=== PATIENT | female | born 1935 | race Caucasian/White ===

== ENCOUNTER 2017-01-09 08:58 | Observation (INO) | payer MEDICARE, OTHER ==
[~2017-01-09] VITALS: Ht 160 cm; Wt 61.8 kg
[~2017-01-09 08:58] MED LIST: CARAFATE1 G PO; CARDIZEM CD300 MG PO; CO Q-10100 MG PO; COUMADIN4 MG PO; COUMADIN5 MG PO; DULCOLAX STOOL100 MG PO; HYDROCHLOROTH12.5 M1 PO; LIORESAL 10 MG10 MG PO; LUMIGAN 0.01%2.5 ML EACH EYE; NIACIN250 M1 PO; NORCO 10/325 TA1 TA1 PO; PLAVIX75 MG PO; PRILOSEC20 MG PO; PRINZIDE 20/12.1 TAB PO; PROTONIX40 MG PO; REMERON15 MG PO; VALIUM10 MG PO; ZOCOR20 MG PO
[2017-01-09 09:52] LABS: BASOPHILS 0.2 % (0-2); EOSINOPHILS 3.2 % (0-7); HEMATOCRIT 37.3 % (36.0-48.0); HEMOGLOBIN 11.3 g/dL (12-16); IMMATURE GRANULOCYTES 0.2 % (0-5); LYMPHOCYTES 21.8 % (15-50); MCH 24.5 pg (26.0-34.0); MCHC 30.3 g/dL (31.0-37.0); MCV 80.9 fL (80.0-100.0); MEAN PLATELET VOLUME 8.7 fL (7.4-10.4); MONOCYTES 8.6 % (2-11); PLATELET COUNT 232 10x3/uL (130-400); RBC 4.61 10x6/uL (4.00-5.40); WBC 4.6 10x3/uL (4.8-10.8)
[2017-01-09 10:03] LABS: ALBUMIN 3.7 g/dL (3.4-5.0); ANION GAP 11.3 mmol/L (8-16); BILIRUBIN - TOTAL 0.3 mg/dL (0.2-1.3); CALCIUM 9.6 mg/dL (8.5-10.1); CARBON DIOXIDE 27.5 mmol/L (21.0-32.0); CREATININE - SERUM 0.8 mg/dL (0.6-1.3); MAGNESIUM - SERUM 1.9 mg/dL (1.8-2.4); POTASSIUM - SERUM 3.8 mmol/L (3.5-5.1); PROTEIN - SERUM 6.8 g/dL (6.4-8.2)
[2017-01-09 10:04] LABS: APPEARANCE CLEAR (CLEAR); BILIRUBIN NEGATIVE (NEGATIVE); COLOR YELLOW (YELLOW); GLUCOSE NEGATIVE (NEGATIVE); KETONE NEGATIVE (NEGATIVE); LEUKOCYTE ESTERASE NEGATIVE (NEGATIVE); NITRITE NEGATIVE (NEGATIVE); PROTEIN NEGATIVE (NEGATIVE); SPECIFIC GRAVITY 1.015 (1.005-1.020); UROBILINOGEN NORMAL (NORMAL)
[2017-01-09 10:08] LABS: UDS - AMPHET NEGATIVE QUAL (NEGATIVE); UDS - BARB NEGATIVE QUAL (NEGATIVE); UDS - BENZO POSITIVE QUAL (NEGATIVE); UDS - COCAINE NEGATIVE QUAL (NEGATIVE); UDS - METH NEGATIVE QUAL (NEGATIVE); UDS - OPIATE POSITIVE QUAL (NEGATIVE); UDS - PCP NEGATIVE QUAL (NEGATIVE); UDS - THC NEGATIVE QUAL (NEGATIVE)
--- NOTE | 2017-01-09 14:19 | NUR ---
TRANSFER FROM ER BY STRETCHER. OREINTED TO ROOM. CALL LIGHT IN REACH. WILL CONT. PLAN OF CARE.
--- NOTE | 2017-01-09 14:54 | NUR ---
CONFUSED, AND SCARED. FAMILY AT BEDSIDE. SR UP WITH CALL LIGHT IN REACH. O2 AT 2 LM PER NC.
[2017-01-09 14:58] VITALS: BP 115/80; BMI 24.1
[2017-01-09 16:00] VITALS: BP 165/80
[2017-01-09] MEDS ORDERED: ZOCOR40 MG PO (16:07)
[2017-01-09] MEDS ORDERED: NITRO-DUR0.4 MG (16:14)
[2017-01-09] MEDS ORDERED: CATAPRES0.1 MG PO (16:19)
[2017-01-09] MEDS ORDERED: PRINZIDE 20/12.1 TA1 PO (16:20)
[2017-01-09] MEDS ORDERED: PROTONIX40 MG PO (16:22)
[2017-01-09] MEDS ORDERED: REMERON15 MG/UDTA PO (16:22)
[2017-01-09] MEDS ORDERED: BIMATOPROST2.5 ML EACH EYE (16:23)
[2017-01-09] MEDS ORDERED: BACLOFEN10 MG PO (16:28)
[2017-01-09 17:41] LABS: % SATURATION 9 % (15-55); IRON 34 ug/dl (35-150); TOTAL IRON BIND CAPACITY 371 ug/dl (260-445); UNSAT IRON BIND CAPACITY 337 ug/dl (150-375)
--- NOTE | 2017-01-09 18:30 | NUR ---
NORE ALERT. FAMILY AT BEDSIDE.IV TO WRIST. TELEMERTY SHOWS SR.SR UP TIMES 2 WITH CALL LIGHT IN REACH. WILL MONITOR
[2017-01-09 19:00] VITALS: BP 141/82
[2017-01-10] VITALS: BP 146/80
--- NOTE | 2017-01-10 01:58 | NUR ---
RESTING WITH EYES CLOSED. RESPERATIONS EVEN, NO S/S DISTRESS NOTED.
[2017-01-10 04:32] VITALS: BP 135/84
[2017-01-10 05:35] LABS: BASOPHILS 0.2 % (0-2); HEMATOCRIT 35.8 % (36.0-48.0); IMMATURE GRANULOCYTES 0.2 % (0-5); LYMPHOCYTES 19.3 % (15-50); MCH 24.1 pg (26.0-34.0); MCHC 30.7 g/dL (31.0-37.0); MONOCYTES 10.7 % (2-11); NEUTROPHILS 67.6 % (40-80); PLATELET COUNT 263 10x3/uL (130-400); RBC 4.56 10x6/uL (4.00-5.40); RDW 14.1 % (11.5-14.5); WBC 4.6 10x3/uL (4.8-10.8)
[2017-01-10 05:41] LABS: MCV 78.5 fL (80.0-100.0)
[2017-01-10 06:10] LABS: ALBUMIN 3.2 g/dL (3.4-5.0); ALKALINE PHOSPHATASE 85 U/L (46-116); ALT (SGPT) 23 U/L (10-68); BILIRUBIN - TOTAL 0.41 mg/dL (0.2-1.3); CALC OSMOLALITY 274 mosm/kg (275-300); CARBON DIOXIDE 24.8 mmol/L (21.0-32.0); CHLORIDE - SERUM 104 mmol/L (98-107); CREATININE - SERUM 0.7 mg/dL (0.6-1.3); GLUCOSE 118 mg/dL (74-106); POTASSIUM - SERUM 3.4 mmol/L (3.5-5.1); PROTEIN - SERUM 6.8 g/dL (6.4-8.2); SODIUM 137 mmol/L (136-145); eGFR NON AFRICAN AMERICAN 85 mL/min (90-120)
[2017-01-10 06:13] LABS: UREA NITROGEN 12 mg/dL (7-18)
--- NOTE | 2017-01-10 06:49 | NUR ---
NOTIFIED BY PTS SON THAT PTS RESPERATIONS HAS DECREASED MORE AND THAT PT IS HARDER TO AWAKEN. ENTERED ROOM, PTS RESPERATIONS SHALLOW, PT NOT RESPONDING TO STERNAL RUB. RAPID RESPOSE CALLED. PT 65 SR ON TELEMETRY, BP 151/72, SPO2 92% ON 2 LITER VIA NC. KELSI RN FROM ICU AT BED SIDE, RAMAZACON 0.5 MG GIVEN IV. IMMEDIATE RESPONSE NOTED, PT ALERT AND TALKING, ASKING FOR HER SON, WILL CONT TO MONITOR.
[2017-01-10 08:00] VITALS: BP 171/74
--- NOTE | 2017-01-10 08:13 | NUR ---
ASSESSMENT DONE. FAMILY AT SIDE.
--- NOTE | 2017-01-10 10:02 | NUR ---
RESTS IN BED WITHOUT NEEDS VOICED. RESP UL ON . AT BS. WILL CONT. PLAN OF CARE.
[2017-01-10 10:54] VITALS: Ht 160 cm; Wt 61.8 kg
[2017-01-10 16:00] VITALS: BP 144/89
--- NOTE | 2017-01-10 18:09 | NUR ---
WITHOUT CHANGES OR DISTRESS NOTED AT THIS TIME. DENIES NEEDS.
--- NOTE | 2017-01-10 19:38 | NUR ---
PT RESTING IN BED. FAMILY AT BEDSIDE. PT DENIES ANY NEEDS. BEDLOW AND CALL LIGHT IN REACH. NO S/S OF DISTRESS. WILL CPOC
--- NOTE | 2017-01-10 21:17 | NUR ---
PT IS AAO X4. STATES SHE IS WORRIED ABOUT HER EYE DROPS. TOLD HER I HAVE THEM WITH ME TO GIVE. PT HAS FAMILY AT BED SIDE. PT DENIES ANY OTHER NEEDS. NO S/S OF DISTRESS. WILL CPOC
[2017-01-10 21:18] VITALS: BP 155/87
[2017-01-11 06:49] LABS: BASOPHILS 0.5 % (0-2); EOSINOPHILS 1.9 % (0-7); HEMOGLOBIN 12.7 g/dL (12-16); IMMATURE GRANULOCYTES 0.3 % (0-5); LYMPHOCYTES 17.3 % (15-50); MCH 25.8 pg (26.0-34.0); MCHC 32.6 g/dL (31.0-37.0); MCV 79.3 fL (80.0-100.0); MEAN PLATELET VOLUME 9.8 fL (7.4-10.4); MONOCYTES 10.3 % (2-11); NEUTROPHILS 69.7 % (40-80); PLATELET COUNT 250 10x3/uL (130-400); RBC 4.92 10x6/uL (4.00-5.40); RDW 14.5 % (11.5-14.5)
[2017-01-11 06:54] LABS: WBC 6.4 10x3/uL (4.8-10.8)
[2017-01-11 07:03] LABS: ALBUMIN 3.6 g/dL (3.4-5.0); ALKALINE PHOSPHATASE 91 U/L (46-116); ALT (SGPT) 24 U/L (10-68); CALCIUM 9.7 mg/dL (8.5-10.1); CARBON DIOXIDE 23.1 mmol/L (21.0-32.0); CHLORIDE - SERUM 104 mmol/L (98-107); CREATININE - SERUM 0.7 mg/dL (0.6-1.3); GLUCOSE 132 mg/dL (74-106); POTASSIUM - SERUM 3.8 mmol/L (3.5-5.1); PROTEIN - SERUM 7.3 g/dL (6.4-8.2); SODIUM 137 mmol/L (136-145); eGFR NON AFRICAN AMERICAN 85 mL/min (90-120)
[2017-01-11 07:05] LABS: CALC OSMOLALITY 277 mosm/kg (275-300); UREA NITROGEN 18 mg/dL (7-18)
[2017-01-11] MEDS ORDERED: PEPCID40 MG PO (07:08)
[2017-01-11] MEDS ORDERED: NIACIN250 M1 PO (07:12)
[2017-01-11] MEDS ORDERED: CO Q-10100 MG PO (07:12)
[2017-01-11] MEDS ORDERED: COLACE100 MG PO (07:14)
--- NOTE | 2017-01-11 08:11 | NUR ---
ASSESSMENT DONE. DENIES NEEDS.
[2017-01-11 08:16] VITALS: BP 156/84
[2017-01-11 09:16] LABS: FOLATE (FOLIC ACID) - SERUM 14.5 ng/mL (>3.0)
--- NOTE | 2017-01-11 09:32 | NUR ---
UP WITH PT ASSIST. AT BS. WILL CONT. PLAN OF CARE.
[2017-01-11] MEDS ORDERED: BACLOFEN10 MG PO ×2 (10:28→14:45)
[2017-01-11] MEDS ORDERED: VALIUM10 MG PO (10:29)
[2017-01-11] MEDS ORDERED: HYDROCODON-ACE1 EAC7 PO (10:34)
[2017-01-11 11:58] VITALS: BP 130/79
[2017-01-11] MEDS ORDERED: VALIUM 2 MG TAB2 MG PO (14:42)
--- NOTE | 2017-01-11 14:57 | NUR ---
IV AND LANG CATH DCD.
--- NOTE | 2017-01-11 14:59 | NUR ---
DC AND RX GIVEN TO PT AND
--- NOTE | 2017-01-11 15:44 | NUR ---
DC HOME PER PERSONAL CAR
== END 2017-01-11 15:45 | disposition home or self-care (01) ==
LOC: D.ER 08:58 → OBSVTIME 12:33 → D.M2 12:33
PROVIDERS: Emergency Medicine; ADMIT Family Medicine
DX: T42.4X1A Poisoning by benzodiazepines, accidental (unintentional), initial encounter (principal); T40.601A Poisoning by unspecified narcotics, accidental (unintentional), initial encounter; R41.82 Altered mental status, unspecified; R41.0 Disorientation, unspecified; R47.81 Slurred speech; R26.89 Other abnormalities of gait and mobility; Z86.73 Personal history of transient ischemic attack (TIA), and cerebral infarction without residual deficits; I10 Essential (primary) hypertension; E11.9 Type 2 diabetes mellitus without complications; G89.29 Other chronic pain; E78.5 Hyperlipidemia, unspecified; H40.9 Unspecified glaucoma; Z86.010 Personal history of colon polyps

== ENCOUNTER → 2017-09-12 14:03 | Outpatient (CLI) | payer MEDICARE, OTHER ==
[2017-01-10 10:54] VITALS: BMI 24.1
[~2017-09-12 14:03] MED LIST changes: +BACLOFEN10 MG PO; +BIMATOPROST2.5 ML EACH EYE; +CATAPRES0.1 MG PO; +CITRACAL + D E1 EACH PO; +COLACE100 MG PO; +HYDROCODON-ACE1 EAC7 PO; +HYDROCODONE-APA1 TAB PO; +NITRO-DUR0.4 MG; +PEPCID40 MG PO; +PRINZIDE 20/12.1 TA1 PO; +REMERON15 MG/UDTA PO; +VALIUM 2 MG TAB2 MG PO; +ZOCOR40 MG PO
== END | disposition home or self-care (01) ==
LOC: D.US 14:00
DX: R60.0 Localized edema (principal)

== ENCOUNTER 2017-10-16 20:20 | Observation (INO) | payer MEDICARE, OTHER ==
[~2017-10-16] VITALS: Ht 167.6 cm; Wt 79.5 kg
[~2017-10-16 20:20] MED LIST changes: -CITRACAL + D E1 EACH PO; -HYDROCODONE-APA1 TAB PO
[2017-10-16 21:44] LABS: BASOPHILS 0.3 % (0-2); HEMATOCRIT 30.4 % (36.0-48.0); HEMOGLOBIN 8.9 g/dL (12-16); IMMATURE GRANULOCYTES 0.4 % (0-5); LYMPHOCYTES 8.8 % (15-50); MCHC 29.3 g/dL (31.0-37.0); MCV 68.3 fL (80.0-100.0); MONOCYTES 10.5 % (2-11); PLATELET COUNT 269 10x3/uL (130-400); RBC 4.45 10x6/uL (4.00-5.40); WBC 7.3 10x3/uL (4.8-10.8)
[2017-10-16 21:51] LABS: ALBUMIN 3.7 g/dL (3.4-5.0); ALKALINE PHOSPHATASE 78 U/L (46-116); ALT (SGPT) 21 U/L (10-68); BILIRUBIN - TOTAL 0.26 mg/dL (0.2-1.3); CALC OSMOLALITY 264 mosm/kg (275-300); CALCIUM 9.6 mg/dL (8.5-10.1); CARBON DIOXIDE 28.8 mmol/L (21.0-32.0); CHLORIDE - SERUM 93 mmol/L (98-107); CREATININE - SERUM 1.3 mg/dL (0.6-1.3); GLUCOSE 110 mg/dL (74-106); POTASSIUM - SERUM 3.7 mmol/L (3.5-5.1); PROTEIN - SERUM 7.2 g/dL (6.4-8.2); SODIUM 130 mmol/L (136-145); UREA NITROGEN 21 mg/dL (7-18); eGFR NON AFRICAN AMERICAN 41 mL/min (90-120)
[2017-10-16 22:03] LABS: CKMB 2.3 U/L (0.0-3.6); CREATINE KINASE 74 UL (21-215); TROPONIN-I < 0.017 ng/mL (0.000-0.060)
[2017-10-16 22:08] VITALS: BP 129/60
[2017-10-16 22:16] LABS: APPEARANCE CLEAR (CLEAR); BILIRUBIN NEGATIVE (NEGATIVE); COLOR YELLOW (YELLOW); GLUCOSE NEGATIVE (NEGATIVE); KETONE NEGATIVE (NEGATIVE); NITRITE NEGATIVE (NEGATIVE); PROTEIN NEGATIVE (NEGATIVE); SPECIFIC GRAVITY 1.005 (1.005-1.020); UROBILINOGEN NORMAL (NORMAL)
[2017-10-16 23:01] VITALS: BP 133/63
[2017-10-17] VITALS (13 sets, daily range): BP systolic 102–199; BP diastolic 54–91; BMI 22.3
[2017-10-17 13:21] LABS: % SATURATION 3 % (15-55); IRON 14 ug/dl (35-150); TOTAL IRON BIND CAPACITY 427 ug/dl (260-445); UNSAT IRON BIND CAPACITY 413 ug/dl (150-375)
[2017-10-17 14:42] LABS: FERRITIN 14 ng/mL (3-244); LDH 241 U/L (81-234)
[2017-10-18 00:10] VITALS: BP 194/103
[2017-10-18 04:11] VITALS: BP 198/91; BMI 28.3
[2017-10-18 04:41] LABS: BASOPHILS 0.2 % (0-2); EOSINOPHILS 1.1 % (0-7); HEMATOCRIT 30.4 % (36.0-48.0); HEMOGLOBIN 8.9 g/dL (12-16); LYMPHOCYTES 14.4 % (15-50); MCH 20.1 pg (26.0-34.0); MCHC 29.3 g/dL (31.0-37.0); MCV 68.8 fL (80.0-100.0); MEAN PLATELET VOLUME 8.1 fL (7.4-10.4); MONOCYTES 10.8 % (2-11); NEUTROPHILS 73.5 % (40-80); PLATELET COUNT 267 10x3/uL (130-400); RBC 4.42 10x6/uL (4.00-5.40); RDW 18.3 % (11.5-14.5); WBC 4.5 10x3/uL (4.8-10.8)
[2017-10-18 04:53] LABS: CALC OSMOLALITY 272 mosm/kg (275-300); CALCIUM 9.6 mg/dL (8.5-10.1); CARBON DIOXIDE 24.7 mmol/L (21.0-32.0); CHLORIDE - SERUM 101 mmol/L (98-107); CREATININE - SERUM 0.7 mg/dL (0.6-1.3); GLUCOSE 94 mg/dL (74-106); POTASSIUM - SERUM 3.5 mmol/L (3.5-5.1); SODIUM 136 mmol/L (136-145); UREA NITROGEN 16 mg/dL (7-18); eGFR NON AFRICAN AMERICAN 85 mL/min (90-120)
[2017-10-18 08:10] VITALS: BP 152/71
[2017-10-18] MEDS ORDERED: LUMIGAN 0.01%2.5 ML EACH EYE (10:07)
[2017-10-18] MEDS ORDERED: HYDROCODONE-APA1 TAB PO (10:12)
[2017-10-18] MEDS ORDERED: ZOCOR40 MG PO (11:15)
[2017-10-18] MEDS ORDERED: PEPCID40 MG PO (11:15)
[2017-10-18] MEDS ORDERED: CITRACAL + D E1 EACH PO (11:15)
[2017-10-18 12:47] VITALS: BP 152/89
[2017-10-18] MEDS ORDERED: HYDROCODON-ACE1 EAC7 PO (13:56)
[2017-10-18 14:33] VITALS: Ht 167.6 cm; Wt 79.5 kg
[2017-10-18 16:48] VITALS: BP 156/69
[2017-10-20 09:14] LABS: FOLATE (FOLIC ACID) - SERUM >20.0 ng/mL (>3.0)
== END 2017-10-18 18:53 | disposition home or self-care (01) ==
LOC: D.ER 20:20 → D.EDHOLD 10-17 00:12 → OBSVTIME 10-17 00:12 → D.EDHOLD 10-17 00:12 → D.M2 10-17 17:22 → D.MS 10-17 20:45
PROVIDERS: Family Medicine; Internal Medicine Nephrology
DX: G93.40 Encephalopathy, unspecified (principal); I65.22 Occlusion and stenosis of left carotid artery; D50.9 Iron deficiency anemia, unspecified; E78.5 Hyperlipidemia, unspecified; F10.10 Alcohol abuse, uncomplicated; I34.0 Nonrheumatic mitral (valve) insufficiency; E11.9 Type 2 diabetes mellitus without complications; N17.9 Acute kidney failure, unspecified

== ENCOUNTER → 2018-01-15 16:39 | Outpatient (CLI) | payer MEDICARE, OTHER ==
[2017-10-18 14:33] VITALS: BMI 28.3
[~2018-01-15 16:39] MED LIST changes: +CITRACAL + D E1 EACH PO; +HYDROCODONE-APA1 TAB PO
== END | disposition home or self-care (01) ==
LOC: D.MAMMO 16:00
DX: Z12.31 Encounter for screening mammogram for malignant neoplasm of breast (principal)

== ENCOUNTER → 2018-05-17 13:40 | Outpatient (CLI) | payer MEDICARE, OTHER ==
[2017-10-18 14:33] VITALS: BMI 28.3
[~2018-05-17 13:40] MED LIST changes: +GABAPENTIN100 MG PO
== END | disposition home or self-care (01) ==
LOC: D.CT 13:40
DX: Z86.711 Personal history of pulmonary embolism (principal)

== ENCOUNTER 2018-05-31 12:38 | Inpatient (IN) | payer MEDICARE, OTHER ==
[~2018-05-31] VITALS: Ht 167.6 cm; Wt 70.9 kg
--- NOTE | ~2018-05-31 | HEMODYNAMI ---
PATIENT:SUMI LACKEY MEDICAL RECORD: [id number] : 35 LOCATION:[facility] D.2306 ADMISSION DATE: 05/31/18 Generatedon:06/03/201822:43 Patient name: SUMI LACKEY Patient #: [id number] SSN: : 1935 Date of study: 06/03/2018 Page: Of Hemodynamic Procedure Report Patient Data Patient Demographics Procedure consent was obtained First Name: SUMI Gender: Female Last Name: ZIYAD : 1935 [facility] Initial: ALESSANDRO Age: 82 year(s) Patient #: [id number] Race: Unknown Additional ID: [id number] Contact details Address: [address] [address] State: [place] City: [place] Zip code: [address] Admission Admission Data Admission Date: 05/31/2018 Admission Time: 15:21 Room #: D.2306 Procedure Procedure Types Cath Procedure Peripheral Cath Diagnostic Procedure Thoracic/Pulmonary Pulmonary Arteriogram Unilat Procedure Description Procedure Date Procedure Date: 06/03/2018 Procedure Start Time: 20:35 Procedure Staff Name Function Luis Jaimes MD Performing Physician Luca Wynne RT Monitor Kira Guzman RN Nurse Procedure Data Cath Procedure Fluoroscopy Diagnostic fluoroscopy Total fluoroscopy Time: time: 33.4 min 33.4 min Diagnostic fluoroscopy Total fluoroscopy dose: 214 dose: 214 mGy mGy Contrast Material Contrast Material Type Amount (ml) Isovue 300 115 Entry Location Entry Primary Successful Side Size Upsize Upsize Entry Closure Succes sful Closure Location (Fr) 1 (Fr) 2 (Fr) Remarks Device Remarks Femoral Right 8 Fr vein Diagnostic catheters Device Type Used For End Catheter Placement Cook Grollman Pigtail 6.7Fr catheter ([id number]) Robin Mayorgastein 5Fr 125CM catheter ([id number]) Procedure Medications Medication Administration Route Dosage Heparin Flush Bag added to field 3 bags (1000units/500ml NS) Lidocaine 1% added to field 20 Hemodynamics Rest Heart Rate: 61 (bpm) Pressure Samples Time Site Value (mmHg) Purpose Heart Use Rate(bpm) 21:07 PA 45/23(29) Snapshot 66 21:48 PA 33/19(24) Snapshot 65 21:48 PA 32/18(24) Snapshot 64 21:49 PA 33/17(24) Snapshot 64 Snapshots Pre Cath Intra NCS Post Cath Vital Signs Time Heart Resp SPO2 etCO2 NIBP (mmHg) Rhythm Pain Sedation Rate (ipm) (%) (mmHg) Status Level (bpm) 20:25:03 62 10 97 0 114/56(97) NSR 0 (11) 6(A) , No pain 20:29:19 60 16 0 98/48(65) NSR 0 (11) 6(A) , No pain 20:34:18 62 16 0 Measuring NSR 0 (11) 6(A) , No pain 20:34:22 62 16 98 0 116/48(76) NSR 0 (11) 6(A) , No pain 20:38:36 65 16 99 0 116/57(82) NSR 0 (11) 6(A) , No pain 20:42:46 77 16 98 0 134/68(88) NSR 0 (11) 6(A) , No pain 20:47:45 67 17 98 0 Measuring NSR 0 (11) 6(A) , No pain 20:47:53 68 16 98 0 112/63(106) NSR 0 (11) 6(A) , No pain 20:52:05 66 23 99 0 120/56(88) NSR 0 (11) 6(A) , No pain 20:56:17 66 30 98 0 112/61(79) NSR 0 (11) 6(A) , No pain 21:01:16 65 25 97 0 Measuring NSR 0 (11) 6(A) , No pain 21:01:41 74 17 97 0 108/48(71) NSR 0 (11) 6(A) , No pain 21:04:18 67 24 98 0 123/63(91) NSR 0 (11) 6(A) , No pain 21:08:32 66 21 97 0 119/58(97) NSR 0 (11) 6(A) , No pain 21:12:46 66 17 98 0 110/55(80) NSR 0 (11) 6(A) , No pain 21:16:56 65 21 98 0 126/55(86) NSR 0 (11) 6(A) , No pain 21:21:10 65 17 99 0 122/59(74) NSR 0 (11) 6(A) , No pain 21:25:28 65 17 99 0 111/46(79) NSR 0 (11) 6(A) , No pain 21:29:38 65 21 100 0 125/54(79) NSR 0 (11) 6(A) , No pain 21:33:56 65 20 98 0 112/52(62) NSR 0 (11) 6(A) , No pain 21:38:08 64 22 99 0 115/50(79) NSR 0 (11) 6(A) , No pain 21:42:24 64 19 98 0 115/46(77) NSR 0 (11) 6(A) , No pain 21:46:40 64 16 99 0 119/43(72) NSR 0 (11) 6(A) , No pain 21:50:56 63 16 98 0 122/47(77) NSR 0 (11) 6(A) , No pain 21:54:35 63 18 100 0 108/52(84) NSR 0 (11) 6(A) , No pain 21:58:49 63 17 98 0 121/43(83) NSR 0 (11) 6(A) , No pain 22:03:04 61 17 99 0 109/55(80) NSR 0 (11) 6(A) , No pain 22:07:17 60 19 100 0 120/43(75) NSR 0 (11) 6(A) , No pain 22:11:33 60 17 100 0 119/47(72) NSR 0 (11) 6(A) , No pain 22:15:49 61 16 100 0 124/48(85) NSR 0 (11) 6(A) , No pain 22:19:18 59 18 100 0 117/47(75) NSR 0 (11) 6(A) , No pain 22:24:18 58 18 0 Measuring NSR 0 (11) 6(A) , No pain 22:24:50 57 16 0 92/39(66) NSR 0 (11) 6(A) , No pain 22:28:19 58 16 0 92/48(67) NSR 0 (11) 6(A) , No pain 22:31:15 59 16 100 0 107/55(82) NSR 0 (11) 6(A) , No pain 22:35:27 59 16 100 0 113/46(77) NSR 0 (11) 6(A) , No pain 22:40:26 59 25 100 0 Measuring NSR 0 (11) 6(A) , No pain 22:40:51 59 18 100 0 93/50(75) NSR 0 (11) 6(A) , No pain Medications Time Medication Route Dose Verified Delivered Reason Notes Effe ctiveness by by 20:28:20 Heparin Flush added 3 Luis Smith used for Bag to bags Theodore Jaimes procedure (1000units/500ml field MD LACEY NS) 20:28:31 Lidocaine 1% added 20ml Luis Smith for local to vial Theodore Jaimes anesthetic field MD LACEY Procedure Log Time Note 20:14:52 Luca Wynne RT (R) (CV) sent for patient. Start room use. 20:15:13 Time tracking: Call back (After hours or weekends) 20:15:17 Plan of Care:Hemodynamics will remain stable., Cardiac rhythm will remain stable., Comfort level will be maintained., Respiratory function will remain adequate., Patient/ family verbilizes understanding of procedure., Procedure tolerated without complication., Recovers from procedure without complications.. 20:15:19 Patient arrives emergently. 20:15:27 Patient received from ICU to IR Unconscious. Tansferred to table in Supine position. 20:15:30 Correct patient and procedure confirmed by team. 20:15:32 Signed procedure consent form obtained from spouse. 20:15:33 ECG and BP/O2 sat monitors applied to patient. 20:15:35 Full Disclosure recording started 20:15:35 - 20:15:41 H&P Date Dictated: 06/03/2018 Within 30 days and on chart.. 20:15:46 Family in waiting room. 20:15:51 Patient NPO since Lunch. 20:16:03 Unable to provide pre-op teaching due to educational barrier. pt on ventilator 20:16:12 Use device set IR Diagnostic 20:16:13 ACIST Syringe (95393) opened to sterile field. 20:16:13 ACIST Hand Control (36928) opened to sterile field. 20:16:13 ACIST Manifold (10845) opened to sterile field. 20:16:14 Bag Decanter (2002S) opened to sterile field. 20:16:14 Sterile Angiographic Pack opened to sterile field. 20:16:15 Tegaderm 4 x 4 (1626W) opened to sterile field. 20:16:28 IV patent on arrival in left forearm with 0.9% NaCl at [facility]. 20:16:34 Right groin area was prepped with chlora-prep and draped in sterile fashion 20:16:36 Alarms reviewed by R. N. 20:16:37 Sharps counted by scrub and verified by R.N. 20:23:37 Vital chart was started 20:28:20 Heparin Flush Bag (1000units/500ml NS) 3 bags added to field was administered by Luis Jaimes MD; used for procedure; 20:28:31 Lidocaine 1% 20ml vial added to field was administered by Luis macias MD; for local anesthetic; 20:29:53 Baseline sample Acquired. 20:34:11 Physician arrived 20:34:12 --------ALL STOP TIME OUT------ 20:34:12 Final Timeout: patient, procedure, and site verified with staff and physician. All members of the team are in agreement. 20:34:14 Right groin site verified by team. 20:34:20 Fire Safety Assessment: A--An alcohol-based skin anteseptic being used preoperatively., C--Open oxygen or nitrous oxide is being used. 20:34:31 Sedation plan: Local Anesthetic Medication:Lidocaine 20:35:08 Procedure started. 20:35:13 Local anesthetic to right femoral vein with Lidocaine 1% by Luis Jaimes MD.INITIAL ACCESS ONLY 20:37:44 Access obtained with 4Fr micropunture. 20:38:16 ALISTAIR 145cm wire (J61932) opened to sterile field. 20:38:17 Micropuncture VSI 4FR kit opened to sterile field. 20:38:18 TUBING Contrast Injection High Pressure (XUU586E) opened to sterile field. 20:38:21 A Tapiture Grollman Pigtail 6.7Fr catheter (Y36699) was advanced over the wire and used for . 20:38:22 Indigo System Aspiration Catheter 8 opened to sterile field. 20:38:23 Cook RAABE 7FR.90CM guide sheath opened to sterile field. 20:38:36 Indigo System Pump suction opened to sterile field. 20:48:42 Left groin area was prepped with chlora-prep and draped in sterile fashion 20:49:59 A 8 Fr sheath was inserted into the Right Femoral vein 20:57:52 GLIDE WIRE ANGLE 260cm (RI7075) opened to sterile field. 20:59:00 TORQUE DEVICE PLASTIC .038 ( TD01) opened to sterile field. 21:01:44 LOGAN 260 wire (K09167) opened to sterile field. 21:07:06 Zero performed for pressure channel P1 21:12:17 A Elevate Medical Meredith 5Fr 125CM catheter ([id number]) was advanced over the wire and used for . 21:16:34 Indigo System Separator 8 opened to sterile field. 21:21:18 STOPCOCK 3-Way Large Bore (W82786) opened to sterile field. 21:47:44 PT ON VENT, NO SEDATION USED 21:48:02 Zero performed for pressure channel P1 21:48:07 Zero performed for pressure channel P1 21:48:12 Zero performed for pressure channel P1 22:07:16 Zero performed for pressure channel P1 22:15:56 Procedure ended.(Physican Out) 22:16:25 Fluoroscopy time 33.40 minutes. 22:16:30 Fluoroscopy dose: 214 mGy 22:16:30 Flurop Dose total: 214 22:16:33 Sharps counted by scrub and verified by R.N. 22:16:34 Insertion/operative site no bleeding no hematoma. 22:16:43 Post right femoral vein:stable 22:17:02 triple lumen cath placed and sutured in to rt.groin 22:17:04 Post procedure instruction explained to patient.Patient verbalizes understanding. 22:17:05 Procedure and supply charges have been captured, reviewed, submitted an d are correct. 22:23:15 Contrast amount:Isovue 300 115ml. 22:42:41 Report given to ICU. 22:42:44 Patient transfered to ICU with Bed. 22:43:05 Vital chart was stopped Device Usage Item Name Manufacture Quantity Catalog Hospital Part Current Mini mal Lot# / Number Charge Number Stock Stock Serial# Code ACIST Syringe Acist 1 89030 [id number] 463868 [id number] 20 (58735) Medical Systems Inc ACIST Hand Acist 1 79260 855479 273777 480931 5 Control Medical (97062) Systems Inc ACIST Acist 1 92752 219702 809028 950616 5 Manifold Medical (99831) Systems Inc Bag Decanter Microtek 1 2001S 424578 18384 224045 5 (2001S) Medical Inc. Sterile Cardinal 1 [id number] 110923 565233 5 Angiographic Health Pack Tegaderm 4 x 3M 1 1626W 384084 301018 367224 5 4 (1626W) BENTSON 145cm [facility] 1 F65254 298496 269721 5 wire (T28493) Micropuncture VSI VASCULAR 1 7266V 481181 037127 5 VSI 4FR kit SOLUTIONS TUBING Merit 1 [id number] 242099 789053 481741 5 Contrast Medical Injection High Pressure (NNE131M) [facility] 1 G02882 944238 356079 5 Pigtail 6.7Fr catheter (A41644) Indigo System Penumbra 1 [id number] 372738 766714 269419 1 N89160 Aspiration Catheter 8 [facility] C97793 577054 164922 5 7FR.90CM guide sheath Indigo System Penumbra 1 IAPS2 373158 75330 5296057 1 Pump suction GLIDE WIRE Terumo 1 YY5938 066037 611180 440842 5 ANGLE 260cm (XE0179) TORQUE DEVICE Ewing 1 TD01 179057 564487 165968 5 PLASTIC .038 Scientific ( TD01) LOGAN 260 Cook Medical 1 G13527 257998 47715 684372 5 wire (Q72109) Merit Impress Merit 1 [id number] 230553 261272 837653 5 Meredith 5Fr Medical 125CM catheter ([id number]) Indigo System Penumbra 1 586088 263166 492220 1 Separator 8 [facility] 1 B45826 673692 7104 558571 5 3-Way Large Bore (B44269) Signature Audit Cortez Stage Time Signature Unsigned Intra-Procedure 06/03/2018 Luca 10:43:01 PM Sherrell RT (R) (CV) Signatures Monitor : Luca Signature : Sherrell RT Date : Time : [address] [place] [address]
[~2018-05-31 12:38] MED LIST changes: -GABAPENTIN100 MG PO
[2018-05-31 13:51] LABS: BASOPHILS 0.6 % (0-2); EOSINOPHILS 1.2 % (0-7); HEMATOCRIT 40.4 % (36.0-48.0); HEMOGLOBIN 12.7 g/dL (12-16); IMMATURE GRANULOCYTES 0.1 % (0-5); LYMPHOCYTES 19.8 % (15-50); MCH 27.4 pg (26.0-34.0); MCHC 31.4 g/dL (31.0-37.0); MCV 87.1 fL (80.0-100.0); MEAN PLATELET VOLUME 9.1 fL (7.4-10.4); MONOCYTES 10.2 % (2-11); NEUTROPHILS 68.1 % (40-80); PLATELET COUNT 261 10x3/uL (130-400); RBC 4.64 10x6/uL (4.00-5.40); RDW 14.8 % (11.5-14.5); WBC 7.8 10x3/uL (4.8-10.8)
[2018-05-31 13:56] LABS: APTT 27.2 SECONDS (22.8-39.4); INR 1.14 (0.85-1.17); PROTIME 14.1 SECONDS (11.6-15.0)
[2018-05-31 14:00] VITALS: BP 139/84
[2018-05-31 14:08] LABS: ALBUMIN 3.5 g/dL (3.4-5.0); ALKALINE PHOSPHATASE 106 U/L (46-116); ALT (SGPT) 25 U/L (10-68); BILIRUBIN - TOTAL 0.23 mg/dL (0.2-1.3); CALC OSMOLALITY 286 mosm/kg (275-300); CALCIUM 9.6 mg/dL (8.5-10.1); CARBON DIOXIDE 23.9 mmol/L (21.0-32.0); CHLORIDE - SERUM 108 mmol/L (98-107); CREATININE - SERUM 0.8 mg/dL (0.6-1.3); GLUCOSE 121 mg/dL (74-106); POTASSIUM - SERUM 3.3 mmol/L (3.5-5.1); PROTEIN - SERUM 7.7 g/dL (6.4-8.2); SODIUM 143 mmol/L (136-145); UREA NITROGEN 16 mg/dL (7-18); eGFR NON AFRICAN AMERICAN 73 mL/min (90-120)
[2018-05-31 14:12] LABS: CKMB 3.9 U/L (0.0-3.6); CREATINE KINASE 205 UL (21-215); MAGNESIUM - SERUM 2.1 mg/dL (1.8-2.4); THYROID STIMULATING HORMONE 0.53 uIU/mL (0.36-3.74); TROPONIN-I < 0.017 ng/mL (0.000-0.060)
[2018-05-31 14:26] LABS: UDS - AMPHET NEGATIVE QUAL (NEGATIVE); UDS - BARB NEGATIVE QUAL (NEGATIVE); UDS - BENZO POSITIVE QUAL (NEGATIVE); UDS - COCAINE NEGATIVE QUAL (NEGATIVE); UDS - OPIATE POSITIVE QUAL (NEGATIVE); UDS - PCP NEGATIVE QUAL (NEGATIVE); UDS - THC NEGATIVE QUAL (NEGATIVE)
[2018-05-31 14:29] LABS: APPEARANCE CLEAR (CLEAR); BILIRUBIN NEGATIVE (NEGATIVE); COLOR YELLOW (YELLOW); GLUCOSE NEGATIVE (NEGATIVE); KETONE NEGATIVE (NEGATIVE); NITRITE NEGATIVE (NEGATIVE); PROTEIN NEGATIVE (NEGATIVE); SPECIFIC GRAVITY 1.015 (1.005-1.020); UROBILINOGEN NORMAL (NORMAL)
[2018-05-31 15:00] VITALS: BP 138/67
[2018-05-31 18:26] VITALS: BMI 21.0
[2018-05-31 21:35] VITALS: BP 175/93
[2018-06-01 01:06] VITALS: BP 165/94
[2018-06-01 04:54] LABS: BASOPHILS 0.4 % (0-2); EOSINOPHILS 0.8 % (0-7); HEMATOCRIT 40.5 % (36.0-48.0); HEMOGLOBIN 12.9 g/dL (12-16); IMMATURE GRANULOCYTES 0.1 % (0-5); LYMPHOCYTES 13.8 % (15-50); MCH 27.4 pg (26.0-34.0); MCHC 31.9 g/dL (31.0-37.0); MCV 86.2 fL (80.0-100.0); MEAN PLATELET VOLUME 9.3 fL (7.4-10.4); MONOCYTES 8.3 % (2-11); NEUTROPHILS 76.6 % (40-80); PLATELET COUNT 271 10x3/uL (130-400); RDW 14.8 % (11.5-14.5); WBC 7.5 10x3/uL (4.8-10.8)
[2018-06-01 04:57] VITALS: BP 174/108
[2018-06-01 05:12] LABS: ALBUMIN 3.2 g/dL (3.4-5.0); ALKALINE PHOSPHATASE 107 U/L (46-116); ALT (SGPT) 25 U/L (10-68); BILIRUBIN - TOTAL 0.47 mg/dL (0.2-1.3); CALC OSMOLALITY 278 mosm/kg (275-300); CALCIUM 9.2 mg/dL (8.5-10.1); CARBON DIOXIDE 22.9 mmol/L (21.0-32.0); CHLORIDE - SERUM 102 mmol/L (98-107); CREATININE - SERUM 0.6 mg/dL (0.6-1.3); GLUCOSE 124 mg/dL (74-106); POTASSIUM - SERUM 3.2 mmol/L (3.5-5.1); PROTEIN - SERUM 7.4 g/dL (6.4-8.2); SODIUM 140 mmol/L (136-145); eGFR NON AFRICAN AMERICAN > 90 mL/min (90-120)
[2018-06-01 05:13] LABS: UREA NITROGEN 10 mg/dL (7-18)
[2018-06-01 10:04] VITALS: BP 181/114
[2018-06-01 13:29] VITALS: Ht 167.6 cm; Wt 70.9 kg
[2018-06-01 14:49] VITALS: BP 183/117
[2018-06-01 19:00] VITALS: BP 148/95
[2018-06-01] MEDS ORDERED: GABAPENTIN100 MG PO (19:25)
[2018-06-01] MEDS ORDERED: LUMIGAN 0.01%2.5 ML EACH EYE (19:30)
[2018-06-02] VITALS: BP 181/100
[2018-06-02 03:00] VITALS: BP 150/91
[2018-06-02 10:58] VITALS: BP 176/101
[2018-06-02 11:43] LABS: BASOPHILS 0.2 % (0-2); EOSINOPHILS 1.5 % (0-7); HEMATOCRIT 38.9 % (36.0-48.0); HEMOGLOBIN 12.3 g/dL (12-16); IMMATURE GRANULOCYTES 0.3 % (0-5); LYMPHOCYTES 16.7 % (15-50); MCH 27.2 pg (26.0-34.0); MCHC 31.6 g/dL (31.0-37.0); MCV 86.1 fL (80.0-100.0); MEAN PLATELET VOLUME 9.2 fL (7.4-10.4); MONOCYTES 12.2 % (2-11); NEUTROPHILS 69.1 % (40-80); PLATELET COUNT 170 10x3/uL (130-400); RBC 4.52 10x6/uL (4.00-5.40); WBC 6.6 10x3/uL (4.8-10.8)
[2018-06-02 11:51] LABS: ANION GAP 17.2 mmol/L (8-16); CARBON DIOXIDE 22.9 mmol/L (21.0-32.0); CREATININE - SERUM 0.9 mg/dL (0.6-1.3); MAGNESIUM - SERUM 1.8 mg/dL (1.8-2.4); POTASSIUM - SERUM 3.1 mmol/L (3.5-5.1)
[2018-06-02 14:18] VITALS: BP 190/118
[2018-06-02 17:57] VITALS: BP 159/101
[2018-06-02 19:00] VITALS: BP 181/88
[2018-06-03] VITALS (14 sets, daily range): BP systolic 68–170; BP diastolic 29–88
[2018-06-03 07:12] LABS: ANION GAP 18.6 mmol/L (8-16); CALCIUM 8.9 mg/dL (8.5-10.1); CARBON DIOXIDE 20.5 mmol/L (21.0-32.0); MAGNESIUM - SERUM 1.8 mg/dL (1.8-2.4); POTASSIUM - SERUM 4.1 mmol/L (3.5-5.1)
[2018-06-03 07:32] LABS: HEMATOCRIT 33.8 % (36.0-48.0); HEMOGLOBIN 10.7 g/dL (12-16); LYMPHOCYTES 15.9 % (15-50); MCH 27.6 pg (26.0-34.0); MCHC 31.7 g/dL (31.0-37.0); MCV 87.3 fL (80.0-100.0); MEAN PLATELET VOLUME 8.7 fL (7.4-10.4); NEUTROPHILS 72.8 % (40-80); RBC 3.87 10x6/uL (4.00-5.40); RDW 14.6 % (11.5-14.5); WBC 7.6 10x3/uL (4.8-10.8)
[2018-06-03 07:33] LABS: PLATELET COUNT 130 10x3/uL (130-400)
[2018-06-04] VITALS (75 sets, daily range): BP systolic 56–1124; BP diastolic 20–878
[2018-06-04 02:24] LABS: INR 1.53 (0.85-1.17); PROTIME 17.8 SECONDS (11.6-15.0)
[2018-06-04 05:43] LABS: BASOPHILS 0.1 % (0-2); EOSINOPHILS 0.6 % (0-7); HEMATOCRIT 29.9 % (36.0-48.0); HEMOGLOBIN 9.3 g/dL (12-16); IMMATURE GRANULOCYTES 0.4 % (0-5); LYMPHOCYTES 19.7 % (15-50); MCH 27.4 pg (26.0-34.0); MCHC 31.1 g/dL (31.0-37.0); MCV 88.2 fL (80.0-100.0); MEAN PLATELET VOLUME 9.3 fL (7.4-10.4); MONOCYTES 9.8 % (2-11); NEUTROPHILS 69.4 % (40-80); RBC 3.39 10x6/uL (4.00-5.40); RDW 15.3 % (11.5-14.5)
[2018-06-04 05:44] LABS: PLATELET COUNT 91 10x3/uL (130-400)
[2018-06-04 05:46] LABS: ANION GAP 15.8 mmol/L (8-16); BILIRUBIN - TOTAL 0.16 mg/dL (0.2-1.3); CALCIUM 7.5 mg/dL (8.5-10.1); CARBON DIOXIDE 20.1 mmol/L (21.0-32.0); CREATININE - SERUM 1.4 mg/dL (0.6-1.3); MAGNESIUM - SERUM 1.9 mg/dL (1.8-2.4); PHOSPHOROUS 4.4 mg/dL (2.5-4.9); POTASSIUM - SERUM 3.9 mmol/L (3.5-5.1); PROTEIN - SERUM 5.1 g/dL (6.4-8.2)
[2018-06-04 09:09] LABS: APPEARANCE HAZY (CLEAR); BILIRUBIN NEGATIVE (NEGATIVE); COLOR YELLOW (YELLOW); GLUCOSE 50 mg/dL (NEGATIVE); KETONE NEGATIVE (NEGATIVE); NITRITE NEGATIVE (NEGATIVE); PROTEIN NEGATIVE (NEGATIVE); UROBILINOGEN NORMAL (NORMAL)
[2018-06-04 09:21] LABS: PLATELET ESTIMATE DECREASED
[2018-06-05] VITALS (33 sets, daily range): BP systolic 74–150; BP diastolic 42–81
[2018-06-05 04:49] LABS: BASOPHILS 0.1 % (0-2); EOSINOPHILS 0.2 % (0-7); HEMATOCRIT 29.6 % (36.0-48.0); HEMOGLOBIN 9.2 g/dL (12-16); IMMATURE GRANULOCYTES 0.2 % (0-5); LYMPHOCYTES 11.5 % (15-50); MCH 27.1 pg (26.0-34.0); MCHC 31.1 g/dL (31.0-37.0); MCV 87.3 fL (80.0-100.0); MEAN PLATELET VOLUME 10.4 fL (7.4-10.4); MONOCYTES 8.2 % (2-11); NEUTROPHILS 79.8 % (40-80); RBC 3.39 10x6/uL (4.00-5.40); RDW 15.3 % (11.5-14.5)
[2018-06-05 04:51] LABS: ANION GAP 14.6 mmol/L (8-16); CALCIUM 7.3 mg/dL (8.5-10.1); CARBON DIOXIDE 20.8 mmol/L (21.0-32.0); CREATININE - SERUM 1.3 mg/dL (0.6-1.3); POTASSIUM - SERUM 3.4 mmol/L (3.5-5.1)
[2018-06-05 04:56] LABS: PLATELET COUNT 112 10x3/uL (130-400); WBC 9.4 10x3/uL (4.8-10.8)
--- NOTE | 2018-06-05 20:20 | MORECARE ---
CASE MANAGEMENT DISCHARGE SUMMARY PATIENT: SUMI LACKEY ALESSANDRO UNIT: [id number] ADM DATE: 05/31/18 AGE: 82 : 35 SEX: F ROOM/BED: D.2306 AUTHOR: STEPHANIE ROB PHYSICIAN: REFERRING PHYSICIAN: RICHARD STRICKLAND MD DATE OF SERVICE: 06/05/18 Discharge Plan Patient Name: SUMI LACKEY Facility: [facility]:[place] : 1935 Planned Disposition: Hospice Medical Facility Anticipated Discharge Date: Discharge Date: Expected LOS: Initial Reviewer: [email or web address] Initial Review Date: 06/05/2018 Generated: 06/05/18 9:20 pm Comments DCP- Discharge Planning Updated by [email or web address]: Sandra Han on 06/05/18 7:[address] Patient Name: SUMI LACKEY Admission Status: ER Accout number: [id number] Admission Date: 05-31-2018 : 1935 Admission Diagnosis:PNEUMONIA, UNSPECIFIED ORGANISM Attending: RICHARD STRICKLAND Current LOS: 5 Anticipated DC Date: Planned Disposition: Hospice Medical Facility Primary Insurance: MEDICARE A & B Discharge Planning Comments: CM notified that family is planning terminal extubation this evening. No Hospice consult at this time. CM will continue to follow and assist as needed with discharge planning / needs. Anchorer: Sandra Han Patient Name: SUMI LACKEY Page 42351 at 2020 All edits/amendments must be made on the electronic document DICTATION DATE: 06/05/182019 FAIRING MAN: JEAN PIERRE 06/05/182019 RPT#: [id number] DC DATE: STATUS: ADM IN [facility] [address] [place] [address] END OF REPORT
--- NOTE | 2018-06-06 19:59 | MORECARE ---
CASE MANAGEMENT DISCHARGE SUMMARY PATIENT: SUMI LACKEY ALESSANDRO UNIT: [id number] ADM DATE: 05/31/18 AGE: 82 : 35 SEX: F ROOM/BED: D.2306 AUTHOR: STEPHANIE ROB PHYSICIAN: REFERRING PHYSICIAN: RICHARD STRICKLAND MD DATE OF SERVICE: 06/06/18 Discharge Plan Patient Name: SUMI LACKEY Facility: [facility]:[place] : 1935 Planned Disposition: Hospice Medical Facility Anticipated Discharge Date: Discharge Date: 06/06/2018 Expected LOS: Initial Reviewer: [email or web address] Initial Review Date: 06/05/2018 Generated: 06/06/18 8:59 pm Comments DCP- Discharge Planning Updated by [email or web address]: Sandra Han on 06/05/18 7:[address] Patient Name: SUMI LACKEY Admission Status: ER Accout number: [id number] Admission Date: 05-31-2018 : 1935 Admission Diagnosis:PNEUMONIA, UNSPECIFIED ORGANISM Attending: RICHARD STRICKLAND Current LOS: 5 Anticipated DC Date: Planned Disposition: Hospice Medical Facility Primary Insurance: MEDICARE A & B Discharge Planning Comments: CM notified that family is planning terminal extubation this evening. No Hospice consult at this time. CM will continue to follow and assist as needed with discharge planning / needs. Starting Sheet Tank Operator: Sandra Han Last DP export: 06/05/18 7:20 p Patient Name: SUMI LACKEY Page 44441 at 1958 All edits/amendments must be made on the electronic document DICTATION DATE: 06/06/181958 WATCH ADJUSTER: JEAN PIERRE 06/06/181958 RPT#: [id number] DC DATE:06/06/18 STATUS: DIS IN [facility] [address] [place] [address] END OF REPORT
== END 2018-06-06 00:43 | DRG 163 ==
LOC: D.ER 12:38 → D.MS 15:21 → D.ICU 15:21 → D.EDHOLD 15:21 → D.MS 15:22 → D.ICU 06-03 19:48
PROVIDERS: Family Medicine; Internal Medicine Pulmonary Disease; Radiology Diagnostic Radiology; ADMIT Internal Medicine Nephrology
PROC: 02CQ3ZZ Extirpation of Matter from Right Pulmonary Artery, Percutaneous Approach (ICD-10-PCS; 2018-06-03)
PROC: 5A1945Z Respiratory Ventilation, 24-96 Consecutive Hours (ICD-10-PCS; 2018-06-03)
PROC: 0BH17EZ Insertion of Endotracheal Airway into Trachea, Via Natural or Artificial Opening (ICD-10-PCS; 2018-06-03)
PROC: 02CR3ZZ Extirpation of Matter from Left Pulmonary Artery, Percutaneous Approach (ICD-10-PCS; principal; 2018-06-03 20:00)
DX: J69.0 Pneumonitis due to inhalation of food and vomit (principal); G93.41 Metabolic encephalopathy; I26.92 Saddle embolus of pulmonary artery without acute cor pulmonale; J96.01 Acute respiratory failure with hypoxia; E87.2 Acidosis; N39.0 Urinary tract infection, site not specified; G93.1 Anoxic brain damage, not elsewhere classified; E87.0 Hyperosmolality and hypernatremia; J18.9 Pneumonia, unspecified organism; I46.9 Cardiac arrest, cause unspecified; I95.9 Hypotension, unspecified; D50.9 Iron deficiency anemia, unspecified; E78.5 Hyperlipidemia, unspecified; M19.90 Unspecified osteoarthritis, unspecified site; R53.81 Other malaise; E11.9 Type 2 diabetes mellitus without complications; Z66 Do not resuscitate; Y95 Nosocomial condition